=== PATIENT | male | born 1980 | race Caucasian/White ===

== ENCOUNTER 2024-10-16 00:39 | Emergency (ER) | payer OTHER ==
[~2024-10-16] VITALS: Ht 172.7 cm; Wt 61.2 kg
[2024-10-16] MEDS ORDERED: Ibuprofen 600 MG Tab PO ONE (03:10)
== END 2024-10-16 03:16 | disposition home or self-care (01) ==
LOC: ER 00:39
DX: S01.81XA Laceration without foreign body of other part of head, initial encounter (principal); Y09 Assault by unspecified means; Z88.8 Allergy status to other drugs, medicaments and biological substances
CPT/HCPCS: 12013; 99284-25; A9270

== ENCOUNTER 2024-10-19 18:00 | Emergency (ER) | payer MEDICARE, OTHER ==
[~2024-10-19] VITALS: Ht 172.7 cm; Wt 64.4 kg
[2024-10-19] MEDS ORDERED: SULTRIDS PO (18:19)
[2024-10-19] MEDS ORDERED: Trimethoprim/Sulfamethoxazole DS Tab PO ONE (18:20)
== END 2024-10-19 18:23 | disposition home or self-care (01) ==
LOC: ER 18:00
DX: L02.01 Cutaneous abscess of face (principal); B95.8 Unspecified staphylococcus as the cause of diseases classified elsewhere; Z88.8 Allergy status to other drugs, medicaments and biological substances; Z88.1 Allergy status to other antibiotic agents
CPT/HCPCS: 87070; 87075; 87077; 87186; 87205; 99283; A9270